=== PATIENT | female | born 1955 | race Caucasian/White ===

== ENCOUNTER 2017-05-24 16:15 | Emergency (ER) | payer OTHER ==
[~2017-05-24] VITALS: Ht 165.1 cm; Wt 110.6 kg
[~2017-05-24 16:15] MED LIST: ATENOLOL25 MG PO; MIRALAX255 GM PO; PHENERGAN25 MG PR; PROMETHAZINE HC25 M1 PO
[2017-05-24] MEDS ORDERED: KEFLEX500 MG PO (21:49)
[2017-05-24 22:12] VITALS: BP 111/74
== END 2017-05-24 22:13 | disposition home or self-care (01) ==
LOC: EME 16:15
DX: S00.31XA Abrasion of nose, initial encounter (principal); S00.33XA Contusion of nose, initial encounter; S01.21XA Laceration without foreign body of nose, initial encounter; S80.01XA Contusion of right knee, initial encounter; S80.02XA Contusion of left knee, initial encounter; S16.1XXA Strain of muscle, fascia and tendon at neck level, initial encounter; W01.198A Fall on same level from slipping, tripping and stumbling with subsequent striking against other object, initial encounter; Y93.K1 Activity, walking an animal; Z23 Encounter for immunization; E78.00 Pure hypercholesterolemia, unspecified; F32.9 Major depressive disorder, single episode, unspecified; Z98.61 Coronary angioplasty status; Z87.891 Personal history of nicotine dependence; Z88.8 Allergy status to other drugs, medicaments and biological substances
CPT/HCPCS: 70450; 70486; 72040; 73564; 99281; 99284